=== PATIENT | female | born 1980 | race Caucasian/White ===

== ENCOUNTER 2016-07-01 15:55 | Emergency (ER) | payer OTHER ==
[~2016-07-01] VITALS: Ht 170.2 cm; Wt 75.0 kg
[2016-07-01 15:56] VITALS: BP 112/65; PULSE 72; RESP 16; O2SAT 100
--- NOTE | 2016-07-01 17:57 | ED.REPORT ---
HPI-Eye Problem Date of Service Jul 01, 2016 ED Provider: Charbel Butcher MD The patient is a 36 year old female who presents to the ED due to right eye pain for the past 4 hours. She was hanging plywood up against installation at her house with her when she felt something hit her eye. She reports that it feels like something is moving around in her eye. She was wearing her glasses when doing work. Pt scratched her eye 15 years ago. Tetanus is current. Visual acuity is 20/20 in both eyes. Nursing Notes Stated Complaint: SOMETHING IN RIGHT EYE Chief Complaint: Eye Nursing Notes Reviewed: Yes Allergies: Coded Allergies: erythromycin base (Verified Allergy, Severe, anaphylaxis, 07/01/16) General Time Seen by MD: 17:56 Chief Complaint Right eye affected Hx Obtained From: Patient Arrived By: Walk-in Sudden in Onset?: Yes Onset Occurred: 1 - 4 hours ago Symptom Duration: Since onset Context: Occurred at: Home Location: : Eye right Quality: Painful Radiation: Does not radiate Severity: Current: Mild Recent Healthcare: No recent doctor visit, No recent hospitalization Similar Sx Previous: No Past Medical History Past Medical History denies Smoking History Unknown if Ever Smoker Social History Other Social History: Good social support, , Local resident Ambulatory Status Independent Review of Systems Eyes: Reports: Eye pain right Complete sys rev & neg: except as marked. Physical Exam Initial Vital Signs Vital Signs (First) Date Time Temp Pulse Resp B/P Pulse Ox O2 Delivery O2 Flow Rate FiO2 07/01/16 15:56 37.1 72 16 112/65 100 Room Air Initial VS: Reviewed Head / Eyes: Normocephalic Right eye exam with slit lamp: anterior chamber is quiet and deep mod conjuntival injecition a few small abrasions about 6 o'clock by flouriscein lids everted, no FB seen irrigated eye with NS Re-Eval/Medical Decision Re-Evaluation/Progress : Time of Eval: 18:18 Re-Evaluation/Progress Note: Right eye exam performed. Used numbing drops. Pt tolerated procedure well. Counseled Regarding: Diagnosis, Lab results, Need for follow-up, When/why to return to ED Discharge & Departure Primary Impression: Injury of conjunctiva and corneal abrasion of right eye w/o FB Encounter type: initial encounter Qualified Code: S05.01XA - Injury of conjunctiva and corneal abrasion without foreign body, right eye, initial encounter Disposition: Home Discharge Condition All VS Reviewed: Yes Condition: Stable Patient Instructions: Corneal Abrasion (ED) Additional Instructions: I did not find any foreign bodies. You have an abrasion in your eye which often feels like an object. Use cold compresses to help with the pain. Apply gentamicin ointment every 6-8 hours today and tomorrow. Eyes heal quite quickly. If the pain isn't much better or resolved by tomorrow, follow up with an opthamology tomorrow if not almost completely resolved. Return to the Emergency Department for any swelling or discharge. I hope you feel better soon! Referrals: Lakesha Lobo MD Attestation Portion of this note were transcribed by Emma Hamilton. I, Dr. Butcher, personally performed the history, physical exam, and medical decision-making: I reviewed and confirmed the accuracy for the information in the transcribed note. Signed by: naeem Stevens, 07/01/16 1900 copies to: Lakesha Lobo MD, Donald L MD Jul 01, 2016 17:57 Emma Hamilton Jul 01, 2016 18:00
[2016-07-01] MEDS ORDERED: 0.9% Sodium Chloride Inhalation Solution ONE (18:08)
[2016-07-01] MEDS ORDERED: Fluorescein 0.6 mg Ophthalmic Strip ONE (18:08)
[2016-07-01] MEDS ORDERED: Tetracaine 0.5% 4 mL Ophthalmic Solution ONE (18:09)
[2016-07-01] MEDS ORDERED: 0.9% Sodium Chloride Inhalation Solution RIGHT_EYE ONE (18:10)
[2016-07-01] MEDS ORDERED: Fluorescein 0.6 mg Ophthalmic Strip RIGHT_EYE ONE (18:10)
[2016-07-01] MEDS ORDERED: Tetracaine 0.5% 4 mL Ophthalmic Solution RIGHT_EYE ONE (18:10)
[2016-07-01] MEDS ORDERED: GENTAMICIN 0.3% RIGHT_EYE ONE (18:40)
[2016-07-01 18:43] VITALS: BP 112/69; PULSE 78; RESP 17; O2SAT 97
== END 2016-07-01 18:56 | disposition home or self-care (01) ==
LOC: SED 15:55
DX: S05.01XA Injury of conjunctiva and corneal abrasion without foreign body, right eye, initial encounter (principal); W22.8XXA Striking against or struck by other objects, initial encounter; Y93.89 Activity, other specified; Y92.019 Unspecified place in single-family (private) house as the place of occurrence of the external cause; Y99.8 Other external cause status; Z88.1 Allergy status to other antibiotic agents